=== PATIENT | male | born 1980 | race Asian ===

== ENCOUNTER 2018-09-30 20:34 | Emergency (ER) | payer MEDICAID ==
[~2018-09-30] VITALS: Ht 180.3 cm; Wt 80.0 kg
[2018-09-30] MEDS ORDERED: CEFTRIAXONE SODIUM 250 MG/VIAL IM ONE (21:30)
[2018-09-30] MEDS ORDERED: AZITHROMYCIN 500 MG TABLET PO ONE (21:30)
[2018-09-30 22:14] LABS: CLARITY URINE CLOUDY (CLEAR); COLOR URINE YELLOW (YELLOW); KETONES URINE NEGATIVE (NEGATIVE); LEUKOCYTE ESTERASE URINE 3+ (NEGATIVE); NITRITE URINE NEGATIVE (NEGATIVE); OCCULT BLOOD URINE TRACE (NEGATIVE); PROTEIN URINE NEGATIVE (NEGATIVE); SPECIFIC GRAVITY URINE 1.009 (1.005-1.030); UROBILINOGEN URINE 0.2 E.U./dL (0.2-1.0)
[2018-09-30 23:00] VITALS: BP 130/92
== END 2018-09-30 23:03 | disposition home or self-care (01) ==
LOC: ER 21:04
DX: N30.00 Acute cystitis without hematuria (principal); N34.2 Other urethritis; F17.210 Nicotine dependence, cigarettes, uncomplicated
CPT/HCPCS: 81003; 87077; 87081; 87086; 96372; 99283; J0696; Z7610

== ENCOUNTER 2019-01-28 18:14 | Emergency (ER) | payer MEDICAID ==
[~2019-01-28] VITALS: Ht 180.3 cm; Wt 77.2 kg
[2019-01-28] MEDS ORDERED: ONDANSETRON HCL 4MG/2ML INJ IV STA (21:25)
[2019-01-28] MEDS ORDERED: SODIUM CHLORIDE 0.9% 1,000 ML IV ONE (21:25)
[2019-01-28 22:08] LABS: BASOPHILS % 0.3 % (0.0-2.0); EOSINOPHILS % 1.6 % (0.0-5.0); HEMATOCRIT. 42.1 % (42.0-52.0); HEMOGLOBIN. 14.6 g/dL (14.0-18.0); LYMPHOCYTES % 33.2 % (20.0-50.0); MEAN CORPUSCULAR HEMOGLOBIN 30.1 pg (28.0-32.0); MEAN CORPUSCULAR VOLUME 86.7 fL (80.0-94.0); MEAN PLATELET VOLUME 7.1 fl (7.4-10.4); MONOCYTES % 10.8 % (2.0-8.0); NEUTROPHILS % 54.1 % (40.0-76.0); PLATELET 297 x1000/uL (130-400); RED BLOOD CELL COUNT 4.86 mill/uL (4.7-6.1); RED CELL DISTRIBUTION WIDTH 13.5 % (11.6-14.6)
[2019-01-28 22:11] LABS: CHLORIDE 106 mEq/L (98-107)
[2019-01-28 22:16] LABS: CLARITY URINE CLEAR (CLEAR); COLOR URINE YELLOW (YELLOW); KETONES URINE NEGATIVE (NEGATIVE); LEUKOCYTE ESTERASE URINE 2+ (NEGATIVE); NITRITE URINE NEGATIVE (NEGATIVE); OCCULT BLOOD URINE NEGATIVE (NEGATIVE); PH URINE 6.5 (4.5-8.0); PROTEIN URINE NEGATIVE (NEGATIVE); SPECIFIC GRAVITY URINE 1.003 (1.005-1.030); UROBILINOGEN URINE 0.2 E.U./dL (0.2-1.0)
[2019-01-29 00:57] VITALS: BP 130/64
== END 2019-01-29 01:07 | disposition home or self-care (01) ==
LOC: ER 18:14
DX: N39.0 Urinary tract infection, site not specified (principal)
CPT/HCPCS: 36415; 71045; 80053; 81003; 83605; 85025; 87804; 96374; 99284; J2405; J7030; Z7610